=== PATIENT | male | born 1930 | race Caucasian/White ===

== ENCOUNTER 2018-03-28 08:38 | Day surgery (SDC) | payer MEDICARE, OTHER ==
[2018-03-28] VITALS (11 sets, daily range): BP systolic 136–177; BP diastolic 65–89
[~2018-03-28] VITALS: Ht 170.2 cm; Wt 90.7 kg
[~2018-03-28 08:38] MED LIST: MITOMYCIN 40 MG IV SCH; SODIUM CHLORIDE IV SCH; ceFAZolin sod 1 GM in NS 55 ML IVPB ONE
[2018-03-28] MEDS ORDERED: LIPITOR20 MG ORAL (09:04)
[2018-03-28] MEDS ORDERED: AZOR 10-40 MG1 EACH ORAL (09:04)
[2018-03-28] MEDS ORDERED: fentaNYL 100 mcg/2 mL IV ONE (09:30)
[2018-03-28] MEDS ORDERED: Midazolam 2mg/2ml Inj ONE (09:30)
[2018-03-28] MEDS ORDERED: cefOXitin 1gm Inj ONE (09:39)
[2018-03-28] MEDS ORDERED: Succinylcholine 20mg/ml 10ml vial ONE (10:00)
[2018-03-28] MEDS ORDERED: LR 1000ml 1,000 ML IVLG SCH (10:18)
--- NOTE | 2018-03-28 10:18 | Anethesia Preoperative Eval ---
Anesthesia Pre-op PMH/ROS General Date of Evaluation: Mar 28, 2018 Anesthesiologist: Iker ASA Score: ASA 3 Mallampati Score Class I : Soft palate, uvula, fauces, pillars visible Class II: Soft palate, uvula, fauces visible Class III: Soft palate, base of uvula visible Class IV: Only hard plate visible Mallampati Classification: Class II Surgeon: Rukhsana Diagnosis: Bladder mass Surgical Procedure: TURB Anesthesia History: none Family History: no anesthesia problems Allergies: Coded Allergies: No Known Allergies (Unverified , 03/27/18) Medications: see eMAR Past Medical History Cardiovascular: Reports: HTN, other - HLD; Denies: CAD, HI, valve dz, arrhythmia Pulmonary: Denies: asthma, COPD, MISTI, other Gastrointestinal/Genitourinary: Reports: other - BPH, bladder CA; Denies: GERD, CRI, ESRD Neurologic/Psychiatric: Denies: dementia, CVA, depression/anxiety, TIA, other Endocrine: Denies: DM, hypothyroidism, steroids, other HEENT: Denies: cataract (L), cataract (R), glaucoma, NINILCHIK (L), NINILCHIK (R), other Hematology/Immune: Denies: anemia, DVT, bleeding disorder, other Musculoskeletal/Integumentary: Denies: OA, RA, DJD, DDD, edema, other PSxH Narrative: colectomy Anesthesia Pre-op Phys. Exam Physician Exam Last Vital Signs Date Time Temp Pulse Resp B/P (MAP) Pulse Ox O2 Delivery O2 Flow Rate FiO2 03/28/18 09:12 97.0 64 18 177/89 97 Room Air 97.0 Constitutional: NAD Cardiovascular: RRR Respiratory: CTA Airway Exam Mallampati Score: Class III MO: limited ROM: full Teeth: missing, intact, broken Anesthesia Pre-op A/P Labs see chart Studies Pre-op Studies: EKG - sr Risk Assessment & Plan Assessment: ASA III Plan: GA Status Change Before Surgery: No Pre-Antibiotics Drug: Cefoxitin 2g Given Within 1 Hr of Incision: LUKAS Huizar M.D. Mar 28, 2018 10:18
[2018-03-28] MEDS ORDERED: LR 1000ml ONE (10:20)
[2018-03-28] MEDS ORDERED: Sterile Water Irrig 1000ml IRRIG ONE (10:20)
[2018-03-28] MEDS ORDERED: Lidocaine 1% MPF 10mg/ml 5ml ONE (10:20)
[2018-03-28] MEDS ORDERED: Sterile Water For Irrig 2000ml IRRIG ONE (10:20)
[2018-03-28] MEDS ORDERED: Zemuron 50mg/5ml Inj IV ONE (10:20)
[2018-03-28] MEDS ORDERED: Propofol 200mg/20ml IV ONE (10:20)
[2018-03-28] MEDS ORDERED: NS Irrig 1000ml ONE (10:20)
--- NOTE | 2018-03-28 10:28 | Pre-Procedure Note/Attestation ---
Pre-Procedure Note/Attestation Complete Prior to Procedure Planned Procedure: not applicable Procedure Narrative: TURBT mitomicin Indications for Procedure Pre-Operative Diagnosis: bladder tumor Attestation I attest that I discussed the nature of the procedure; its benefits; risks and complications; and alternatives (and the risks and benefits of such alternatives ), prior to the procedure, with the patient (or the patient's legal school admissions representative). I attest that, if there was a reasonable possibility of needing a blood transfusion, the patient (or the patient's legal school admissions representative) was given the [facility] standardized written summary, pursuant to the Gamaliel Telma Blood Safety Act ([place] Health and Safety Code # 1645, as amended). I attest that I re-evaluated the patient just prior to the surgery and that there has been no change in the patient's H&P, except as documented below: John Milian MD Mar 28, 2018 10:28
[2018-03-28] MEDS ORDERED: DiphenhydrAMINE 50mg/ml Inj IVP PRN (10:30)
[2018-03-28] MEDS ORDERED: Hydromorphone 0.5mg/0.5ml inj IVP PRN (10:30)
[2018-03-28] MEDS ORDERED: Labetalol 5mg/ml 20ml vial IV PRN (10:30)
[2018-03-28] MEDS ORDERED: Ketorolac 30mg Inj IV PRN (10:30)
[2018-03-28] MEDS ORDERED: fentaNYL 100 mcg/2 mL IV PRN (10:30)
[2018-03-28] MEDS ORDERED: Iothalamate Meglumine 60% 30ML INJ ONE (10:35)
--- NOTE | 2018-03-28 10:40 | Immediate Post-Op Evaluation ---
Immediate Post-Op Evalulation Immediate Post-Op Evalulation Procedure: TURBT, bilateral pyelogram Date of Evaluation: Mar 28, 2018 Time of Evaluation: 11:20 IV Fluids: 600 Blood Products: 0 Estimated Blood Loss: 25 Urinary Output: 0 Blood Pressure Systolic: 136 Blood Pressure Diastolic: 65 Pulse Rate: 59 Respiratory Rate: 17 O2 Sat by Pulse Oximetry: 99 Pain Score (1-10): 0 Nausea: No Vomiting: No Complications 0 Patient Status: awake, reacts, patent, none Hydration Status: adequate Drug: Cefoxitin 2g Given Within 1 Hr of Incision: Yes Time Given: 10:25 LUKAS GALINDO M.D. Mar 28, 2018 10:40
--- NOTE | 2018-03-28 11:12 | Brief Operative Note ---
Immediate Post Operative Note Operative Note Pre-op Diagnosis: bladder tumor Procedure: TYRBT Mitomicin Post-op Diagnosis: same Post-op Diagnosis: same as pre-op Surgeon: lila milian Anesthesia: general Specimen: yes Complications: none Fluids: 1000 Estimated Blood Loss: minimal Implant(s) used?: No John Milian MD Mar 28, 2018 11:12
[2018-03-28] MEDS ORDERED: D5 1/2NS 1,000 ML IV SCH (11:15)
[2018-03-28] MEDS ORDERED: Tylenol #3 tab (300mg/30mg) ORAL PRN (11:15)
[2018-03-28] MEDS ORDERED: Norco 5mg/325mg tab ORAL PRN (11:15)
--- NOTE | 2018-03-28 11:19 | 48 Hour Post Anesthesia Eval ---
Post Anesthesia Evaluation Procedure: TURBT, bilateral pyelogram Date of Evaluation: Mar 28, 2018 Time of Evaluation: 12:30 Blood Pressure Systolic: 154 0: 70 Pulse Rate: 55 Respiratory Rate: 19 Temperature (Fahrenheit): 98.6 O2 Sat by Pulse Oximetry: 100 Airway: patent Nausea: No Vomiting: No Pain Intensity: 0 Hydration Status: adequate Cardiopulmonary Status: at baseline Mental Status/LOC: patient returned to baseline Post-Anesthesia Complications: 0 Follow-up care needed: ready to discharge LUKAS GALINDO M.D. Mar 28, 2018 11:19
--- NOTE | 2018-03-31 00:30 | Operative Note - Dictated ---
DATE OF OPERATION: 03/28/2018 PREOPERATIVE DIAGNOSIS: Recurrent bladder tumor. POSTOPERATIVE DIAGNOSIS: Recurrent bladder tumor. OPERATION: Transurethral resection of the bladder tumor, retrograde pyelograms. STACKING MACHINE OPERATOR: John Milian M.D. ANESTHESIA: General. FINDINGS: Tumor in the left lateral wall of the bladder. INDICATION FOR SURGERY: The patient had recurrent bladder tumor. Treatment options were explained to the patient in the great length including all potential complications, he signed the consent. DESCRIPTION OF SURGERY: He was brought to the operating room, placed in lithotomy position, and prepped and draped in a standard fashion. Under general anesthesia, resectoscope was introduced on the left lateral wall and resected fulgurated. Retrograde was normal. Chips were evacuated for pathological examination. The patient was transferred to recovery room in stable condition. Sponge count and instrument count was correct. John Milian M.D. DR: ERLIN JOB#: [id number] CC:
== END 2018-03-28 13:15 | disposition home or self-care (01) ==
LOC: SUR 08:38
DX: D49.4 Neoplasm of unspecified behavior of bladder (principal); I10 Essential (primary) hypertension; E78.5 Hyperlipidemia, unspecified; Z85.51 Personal history of malignant neoplasm of bladder
CPT/HCPCS: 52224; 72170; 76000; J0330; J0694; J2250; J2704; J3010; J7120; 94003; 94150